=== PATIENT | male | born 1960 | race Caucasian/White ===

== ENCOUNTER 2024-07-22 10:27 | Inpatient (IN) | payer BC ==
[~2024-07-22] VITALS: Ht 182.9 cm; Wt 98.4 kg
[2024-07-22] MEDS: dilTIAZem 125mg/125ml BAG KIT 125 ML IV ONE (11:00)
[2024-07-22 11:10] VITALS: PULSE 142; RESP 18; O2SAT 99
[2024-07-22] MEDS: ASPirin 81 mg TAB PO ONE (11:18)
[2024-07-22] MEDS: dilTIAZem 25 MG/5 ML VIAL IV ONE (11:18)
[2024-07-22 11:30] LABS: Basophils # (auto) 0.1 10 ^3/uL (0-0.2); Basophils % (auto) 0.8 % (0.0-2.0); Eosinophils # (auto) 0.2 10 ^3/uL (0-0.8); Hematocrit 48.5 % (41.0-53.0); Hemoglobin 16.3 g/dL (13.5-17.5); Lymphocytes # (auto) 1.8 10 ^3/uL (0.4-5.4); Lymphocytes % (auto) 28.1 % (10.0-50.0); Mean Corpuscular Hemoglobin 26.7 pg (28.0-32.0); Mean Corpuscular Hgb Conc. 33.6 g/dL (32.0-36.0); Mean Corpuscular Volume 79.3 fL (80.0-100.0); Monocytes # (auto) 0.5 10 ^3/uL (0-1.3); Monocytes % (auto) 8.5 % (0.0-12.0); Neutrophils # (auto) 3.8 10 ^3/uL (1.6-8.6); Neutrophils % (auto) 59.6 % (37.0-80.0); Platelet Count (auto) 147 10^3/uL (140-450); Red Blood Cells 6.11 10^6/uL (4.5-5.90); Red Cell Distribution Width 15.9 % (11.8-14.3); White Blood Cell 6.4 10^3/uL (4.4-10.8)
[2024-07-22 11:42] LABS: Anion Gap 8 (5-15); Carbon Dioxide 23 mmol/L (20-31); Chloride 108 mmol/L (98-107); Sodium 139 mmol/L (136-145)
[2024-07-22 11:43] LABS: Calcium 10.2 mg/dL (8.7-10.4)
[2024-07-22 11:48] LABS: BUN/Creatinine Ratio 7.5 (10.0-20.0); Blood Urea Nitrogen 8 mg/dL (9-23); Glucose 117 mg/dL (74-106); Magnesium 2.2 mg/dL (1.6-2.6)
[2024-07-22 13:28] LABS: Urine Bacteria None Seen /hpf (None Seen)
[2024-07-22 14:13] LABS: Urine Blood Negative /uL (Negative); Urine Clarity Clear (Clear); Urine Color Colorless (Yellow); Urine Protein, UAD Negative (Negative); Urine Specific Gravity 1.006 (1.001-1.035); Urine Urobilinogen Normal (Negative); Urine WBC 2 /hpf (0 - 3)
[2024-07-22] MEDS ORDERED: NITROGLYCERIN 0.4 MG SL TAB SL PRN (15:30)
[2024-07-22] MEDS ORDERED: DOCUSATE SOD 100 MG CAP PO PRN (15:30)
[2024-07-22] MEDS ORDERED: MORPHINE SULFATE INJ 2 MG/ml SYRG IV PRN (15:30)
[2024-07-22] MEDS ORDERED: ONDANSETRON HCL 4 MG/2 ML VIAL IV PRN (15:30)
[2024-07-22 16:49] LABS: Magnesium 2.2 mg/dL (1.6-2.6)
[2024-07-22 16:51] LABS: Phosphorus 3.4 mg/dL (2.4-5.1)
[2024-07-22 17:01] LABS: INR 1.22 (0.9-1.15); Prothrombin Time 12.7 sec (9.3-11.8)
[2024-07-22 20:18] LABS: T3 Total 1.08 ng/mL (0.60-1.81)
[2024-07-22 20:19] LABS: Free T4 (Free Thyroxine) 1.22 ng/dL (0.89-1.76)
[2024-07-22] MEDS: dilTIAZem HCL 60 MG TAB PO ONE (20:29)
[2024-07-22 20:44] VITALS: PULSE 94; RESP 11; O2SAT 95
[2024-07-22] MEDS: ENOXAPARIN SOD 100 MG/1 ML SYRINGE SC SCH (22:00)
[2024-07-23] VITALS (11 sets, daily range): BP systolic 104–147; BP diastolic 68–100; PULSE 49–146; RESP 14–18; TEMP 97.3–98.1; O2SAT 92–97
[2024-07-23 06:57] LABS: Basophils # (auto) 0 10 ^3/uL (0-0.2); Eosinophils # (auto) 0.2 10 ^3/uL (0-0.8); Eosinophils % (auto) 2.6 % (0.0-7.0); Hemoglobin 15.2 g/dL (13.5-17.5); Neutrophils # (auto) 3.2 10 ^3/uL (1.6-8.6)
[2024-07-23 07:04] LABS: Basophils % (auto) 0.8 % (0.0-2.0); Hematocrit 45.3 % (41.0-53.0); Lymphocytes % (auto) 34.8 % (10.0-50.0); Mean Corpuscular Hemoglobin 26.4 pg (28.0-32.0); Mean Corpuscular Hgb Conc. 33.4 g/dL (32.0-36.0); Monocytes # (auto) 0.3 10 ^3/uL (0-1.3); Monocytes % (auto) 5.9 % (0.0-12.0); Neutrophils % (auto) 55.9 % (37.0-80.0); Nucleated Red Blood Cells % 0.1 %; Platelet Count (auto) 144 10^3/uL (140-450); Red Blood Cells 5.74 10^6/uL (4.5-5.90); White Blood Cell 5.7 10^3/uL (4.4-10.8)
[2024-07-23 07:11] LABS: Alanine Aminotransferase 19 U/L (7-40); Albumin 4.1 g/dL (3.2-4.8); Alkaline Phosphatase 86 U/L (46-116); Anion Gap 6 (5-15); Aspartate Aminotransferase 15 U/L (13-40); BUN/Creatinine Ratio 11.1 (10.0-20.0); Bilirubin, Total 0.8 mg/dL (0.2-1.0); Blood Urea Nitrogen 12 mg/dL (9-23); Calcium 9.7 mg/dL (8.7-10.4); Carbon Dioxide 27 mmol/L (20-31); Chloride 110 mmol/L (98-107); Glucose 118 mg/dL (74-106); Potassium 4.3 mmol/L (3.5-5.1); Sodium 143 mmol/L (136-145); Total Protein 6.4 g/dL (5.7-8.2)
[2024-07-23] MEDS: dilTIAZem HCL 60 MG TAB PO SCH ×2 (18:59)
[2024-07-23] MEDS: AMIODARONE BOLUS KIT 100 ML IV ONE (21:53)
[2024-07-23] MEDS: AMIODARONE 450mg/250ml AE 250 ML IV SCH (22:12)
[2024-07-24] VITALS (8 sets, daily range): BP systolic 109–150; BP diastolic 53–98; PULSE 57–137; RESP 13–20; TEMP 97.2–98; O2SAT 94–97
[2024-07-24] MEDS: AMIODARONE 450mg/250ml AE 250 ML IV SCH (04:12)
[2024-07-24] MEDS: METOPROLOL TARTRATE 25 MG TAB PO ONE (16:31)
[2024-07-24] MEDS: METOPROLOL TARTRATE 25 MG TAB PO SCH (21:16)
[2024-07-25 01:00] VITALS: BP 122/83; PULSE 114; RESP 20; TEMP 98.3; O2SAT 90
[2024-07-25 05:00] VITALS: BP 132/84; PULSE 113; RESP 20; TEMP 97.9; O2SAT 93
[2024-07-25 08:00] VITALS: PULSE 109
[2024-07-25 09:20] VITALS: BP 122/88; PULSE 113; RESP 17; TEMP 97.9; O2SAT 96
[2024-07-25 13:00] VITALS: BP 121/92; PULSE 104; RESP 17; TEMP 98.1; O2SAT 96
[2024-07-25] MEDS ORDERED: AMIO200T33 PO (13:41)
[2024-07-25] MEDS ORDERED: METO25TA5 PO (13:41)
[2024-07-25] MEDS: AMIODARONE HCL 200 MG TAB PO ONE (16:42)
[2024-07-25 16:59] VITALS: BP 116/95; PULSE 91; RESP 19; TEMP 97.7; O2SAT 97
== END 2024-07-25 18:20 | disposition home or self-care (01) | DRG 308 ==
LOC: ER 10:27 → TELE 15:32 → TELE-E-ADS 23:49
PROVIDERS: ADMIT Nurse Practitioner Family; ATTEND Nurse Practitioner Acute Care
DX: I48.91 Unspecified atrial fibrillation (principal); I50.21 Acute systolic (congestive) heart failure; D68.59 Other primary thrombophilia; I11.0 Hypertensive heart disease with heart failure; I49.5 Sick sinus syndrome; E66.9 Obesity, unspecified; E78.5 Hyperlipidemia, unspecified; R73.03 Prediabetes; I48.92 Unspecified atrial flutter; Z79.01 Long term (current) use of anticoagulants; Z79.899 Other long term (current) drug therapy; Z85.820 Personal history of malignant melanoma of skin; Z68.29 Body mass index [BMI] 29.0-29.9, adult
CPT/HCPCS: 36415; 71046; 80048; 80053; 80061; 81001; 83036; 83735; 83880; 84100; 84439; 84443; 84480; 84484; 85025; 85610; 93005; 93306; 96365; 99291; G0378